=== PATIENT | female | born 1965 | race American Indian/Alaskan Native ===

== ENCOUNTER 2016-11-06 07:35 | Emergency (ER) | payer OTHER ==
[2016-11-06 07:52] VITALS: BP 132/80
[2016-11-06 08:38] LABS: Bacteria,Urine 1+ /HPF (Negative); Bilirubin,Urine NEG (Negative); Blood,Urine NEG (Negative); Ketones,Urine NEG (Negative); Leukocyte Esterase,Urine NEG (Negative); Mucus,Urine FEW /HPF; Nitrite,Urine NEG (Negative); Protein,Urine <15 mg/dL mg/dL (Negative); Urobilinogen,Urine < 2.0 mg/dL (<2.0)
--- NOTE | 2016-11-06 09:18 | XRay Report ---
Left knee 2 views: History: Left knee pain. Findings: No acute abnormality. No fracture dislocation or soft tissue calcification. Impression: No definite bony or articular abnormality knee joint.
[2016-11-06] MEDS ORDERED: TRIMOX PO ONE (11:19)
[2016-11-06] MEDS ORDERED: NORCO 5/325 PO ONE (11:19)
[2016-11-06] MEDS ORDERED: MOTRIN PO ONE (11:20)
== END 2016-11-06 11:42 | disposition home or self-care (01) ==
LOC: ED 07:35
DX: M25.562 Pain in left knee (principal); K08.89 Other specified disorders of teeth and supporting structures; F17.210 Nicotine dependence, cigarettes, uncomplicated
CPT/HCPCS: 81001; 99284

== ENCOUNTER 2017-03-29 09:21 | Inpatient (IN) | payer SELFPAY ==
[2017-03-29] MEDS ORDERED: ASPIRIN PO ONE (10:16)
[2017-03-29 10:53] LABS: Basophils % (Auto) 0.6 % (0.0-1.8); Eosinophils # (Auto) 0.1 K/mm3 (0.0-0.4); Eosinophils % (Auto) 0.7 % (0.0-4.3); Hematocrit 25.9 % (30.3-42.9); Hemoglobin 7.7 gm/dl (10.1-14.3); Lymphocytes # (Auto) 1.9 K/mm3 (1.2-5.4); Mean Corpuscular HGB Conc 30 % (30-34); Monocytes # (Auto) 0.8 K/mm3 (0.0-0.8); Monocytes % (Auto) 9.8 % (0.0-7.3); Red Blood Count 4.48 M/mm3 (3.65-5.03); Red Cell Distribution Width 19.8 % (13.2-15.2)
[2017-03-29 11:02] LABS: BUN/Creatinine Ratio 7; Blood Urea Nitrogen 4 mg/dL (7-17); Calcium 8.9 mg/dL (8.4-10.2); Hemolysis Index 0; Mean Corpuscular Hemoglobin 17 pg (28-32); Mean Corpuscular Volume 58 fl (79-97); Platelet Count 165 K/mm3 (140-440)
[2017-03-29] MEDS ORDERED: TYLENOL PO ONE (21:58)
[2017-03-29] MEDS ORDERED: TYLENOL ONE (22:00)
[2017-03-29] MEDS ORDERED: ZOFRAN IV ONE (23:37)
[2017-03-29] MEDS ORDERED: NITRO-BID 2% TP ONE (23:37)
[2017-03-29] MEDS ORDERED: MORPHINE IV ONE (23:37)
--- NOTE | 2017-03-29 23:42 | Emergency Department Report ---
HPI - General Chief Complaint: Chest Pain Time Seen by Provider: 03/29/17 23:27 - HPI HPI: Room 3 The patient is a 51-year-old female presenting with a chief complaint of chest pain. The patient states for the past 3 days she is a substernal chest pain described as a pushing pain/tightness that has been constant. Patient admits to shortness of breath and diaphoresis with her chest pain but denies nausea/ vomiting. Patient also missed to pleurisy. Patient denies any recent flights or long car trips. The patient currently gives her pain a score of 9/10. The patient states she's never had a stress test or cardiac catheterization Location: Substernal chest Duration: 3 days Quality: Tightness/Pushing Severity:9/10 Modifying factors: [see above] Context: [see above] Mode of transportation: [not driving] ED Past Medical Hx - Past Medical History Previous Medical History?: No - Surgical History Past Surgical History?: Yes Additional Surgical History: Right ankle surgery 1995 - Family History Family history: no significant - Social History Smoking Status: Current Every Day Smoker (1/5 pack per day) Substance Use Type: None (denies illicit drug use), Alcohol (occasional) - Medications Home Medications: Home Medications Medication Instructions Recorded Confirmed Last Taken Type Acetaminophen/Codeine [Tylenol #3] 1 tab PO Q6H PRN #12 tab 11/06/16 Unknown Rx Amoxicillin 500 mg PO BID #20 capsule 11/06/16 Unknown Rx Ibuprofen [Motrin] 600 mg PO Q8H PRN #15 tablet 11/06/16 Unknown Rx ED Review of Systems ROS: Stated complaint: CHEST PAIN Other details as noted in HPI Constitutional: diaphoresis Respiratory: shortness of breath Cardiovascular: chest pain Gastrointestinal: denies: nausea, vomiting Musculoskeletal: myalgia Physical Exam - Physical Exam Vital Signs: Vital Signs 03/29/17 03/29/17 03/29/17 10:08 21:56 22:00 Temperature 98.6 F 99.4 F Pulse Rate 98 H 105 H Respiratory 18 18 18 Rate Blood Pressure 146/67 165/75 O2 Sat by Pulse 100 99 Oximetry Physical Exam: GENERAL: The patient is well-developed well-nourished female sitting on stretcher not appearing to be in acute distress. [] HEENT: Normocephalic. Atraumatic. Extraocular motions are intact. Patient has moist mucous membranes. NECK: Supple. Trachea midline CHEST/LUNGS: Clear to auscultation. There is no respiratory distress noted. HEART/CARDIOVASCULAR: Regular. There is no tachycardia. There is no gallop rub or murmur. ABDOMEN: Abdomen is soft, nontender. Patient has normal bowel sounds. There is no abdominal distention. SKIN: There is no rash. There is no edema. There is no diaphoresis. NEURO: The patient is awake, alert, and oriented. The patient is cooperative. The patient has normal speech MUSCULOSKELETAL: There is no evidence of acute injury. ED Course Vital Signs 03/29/17 03/29/17 03/29/17 10:08 21:56 22:00 Temperature 98.6 F 99.4 F Pulse Rate 98 H 105 H Respiratory 18 18 18 Rate Blood Pressure 146/67 165/75 O2 Sat by Pulse 100 99 Oximetry ED Medical Decision Making - Lab Data Result diagrams: 03/29/17 10:29 03/29/17 10:29 Laboratory Tests 03/29/17 03/29/17 03/29/17 10:29 10:29 13:16 WBC 7.8 RBC 4.48 Hgb 7.7 L Hct 25.9 L MCV 58 L MCH 17 L MCHC 30 RDW 19.8 H Plt Count 165 Lymph % (Auto) 25.0 [place] % (Auto) 9.8 H Eos % (Auto) 0.7 Baso % (Auto) 0.6 Lymph # 1.9 [place] # 0.8 Eos # 0.1 Baso # 0.0 Seg Neutrophils % 63.9 Seg Neutrophils # 5.0 Sodium 141 Potassium 3.5 L Chloride 102.6 Carbon Dioxide 23 Anion Gap 19 BUN 4 L Creatinine 0.6 L Estimated GFR > 60 BUN/Creatinine Ratio 7 Glucose 98 Calcium 8.9 Troponin T < 0.010 < 0.010 03/29/17 16:00 WBC RBC Hgb Hct MCV MCH MCHC RDW Plt Count Lymph % (Auto) [place] % (Auto) Eos % (Auto) Baso % (Auto) Lymph # [place] # Eos # Baso # Seg Neutrophils % Seg Neutrophils # Sodium Potassium Chloride Carbon Dioxide Anion Gap BUN Creatinine Estimated GFR BUN/Creatinine Ratio Glucose Calcium Troponin T < 0.010 - EKG Data -: EKG Interpreted by [place] EKG shows normal: sinus rhythm Rate: normal - EKG Data When compared to previous EKG there are: no significant change Interpretation: unchanged when compared t (10/11/2015) - Radiology Data Radiology results: report reviewed (CT chest), image reviewed (chest x-ray, CT chest) interpreted by me: Chest x-ray-right lower lobe atelectasis and questionable effusion on the right lower lobe with blunting of right costophrenic angle CT chest (results discussed with radiologist) (-states patient has a right lower lobe segmental PE as well as a right lower lobe pneumonia - Differential Diagnosis ACS, GERD, pericarditis, symptomatic anemia Critical care attestation.: If time is entered above; I have spent that time in minutes in the direct care of this critically ill patient, excluding procedure time. ED Disposition Clinical Impression: Chest pain, Anemia, Pulmonary embolus, Pneumonia Disposition: OP ADMIT IP TO THIS HOSP Is pt being admited?: Yes Does the pt Need Aspirin: Yes Condition: Fair Instructions: Chest Pain (ED), Bacterial Pneumonia (ED) Referrals: BRENDA BOBO MD [Primary Care Provider] - 3-5 Days Time of Disposition: 01:16 (hospitalist page (Dr. Tawny Wylie))
[2017-03-30] MEDS ORDERED: NACL ONE (00:26)
[2017-03-30] MEDS ORDERED: LEVAQUIN PO ONE (01:14)
[2017-03-30] MEDS ORDERED: LOVENOX SUB-Q ONE (01:14)
[2017-03-30] MEDS ORDERED: DULCOLAX PR PRN (02:35)
[2017-03-30] MEDS ORDERED: ZOFRAN IV PRN (02:35)
[2017-03-30] MEDS ORDERED: MILK OF MAGNESIA PO PRN (02:35)
--- NOTE | 2017-03-30 02:44 | History and Physical Report ---
<ALLEYOCTAVIO - Last Filed: 03/30/17 11:38> History of Present Illness Date of admission: 03/30/17 02:09 Medications and Allergies Allergies Allergy/AdvReac Type Severity Reaction Status Date / Time No Known Allergies Allergy Unverified 09/04/14 06:58 Home Medications Medication Instructions Recorded Confirmed Last Taken Type Apixaban [Eliquis] 5 mg PO BID 30 Days tablet 04/01/17 Unknown Rx Apixaban [Eliquis] 10 mg PO BID 7 Days tablet 04/01/17 Unknown Rx Cyclobenzaprine [Flexeril 10 MG 5 mg PO Q8H PRN tablet 04/01/17 Unknown Rx TAB] Levofloxacin [Levaquin] 750 mg PO QDAY 7 Days tablet 04/01/17 Unknown Rx Pantoprazole [Protonix TAB] 40 mg PO QDAY tablet 04/01/17 Unknown Rx traMADol [Ultram 50 MG tab] 50 mg PO Q6HR PRN #15 tablet 04/01/17 Unknown Rx Active Meds: Active Medications Acetaminophen (Tylenol) 650 mg PO Q4H PRN PRN Reason: Pain MILD(1-3)/Fever >100.5/NAPIER Bisacodyl (Dulcolax) 10 mg IA QDAY PRN PRN Reason: Constipation unrelieved by MOM Enoxaparin Sodium (Lovenox) 100 mg SUB-Q Q12HR [facility] Last Admin: 03/30/17 09:22 Dose: 100 mg Levofloxacin/Dextrose (Levaquin 500mg/100ml) 500 mg in 100 mls @ 100 mls/hr IV Q24HR HUBERT PRN Reason: Protocol Last Admin: 03/30/17 09:23 Dose: 100 mls/hr Influenza Virus Vaccine Quadrival (Fluarix Quad [id number](36 Mos+) 0.5 ml IM .ONCE ONE Stop: 03/31/17 12:01 Magnesium Hydroxide (Milk Of Magnesia) 30 ml PO Q4H PRN PRN Reason: Constipation Ondansetron HCl (Zofran) 4 mg IV Q8H PRN PRN Reason: N/V unrelieved by Reglan Oxycodone/Acetaminophen (Percocet 5/325) 1 tab PO Q6H PRN PRN Reason: Pain, Moderate (4-6) Last Admin: 03/30/17 09:22 Dose: 1 tab Exam - Constitutional Vitals: Temp Pulse Resp BP Pulse Ox 99.4 F 89 19 117/73 98 03/29/17 21:56 03/30/17 10:48 03/30/17 10:48 03/30/17 08:18 03/30/17 10:48 Results - Labs CBC & Chem 7: 03/30/17 07:57 03/30/17 07:57 Labs: Abnormal lab results 03/30/17 03/30/17 Range/Units 07:57 07:57 Hgb 7.0 L (10.1-14.3) gm/dl Hct 23.1 L (30.3-42.9) % MCV 58 L (79-97) fl MCH 18 L (28-32) pg RDW 19.9 H (13.2-15.2) % BUN 5 L (7-17) mg/dL Creatinine 0.5 L (0.7-1.2) mg/dL Glucose 108 H (65-100) mg/dL <SARA CORDOVA - Last Filed: 04/03/17 01:38> History of Present Illness Date of examination: 03/30/17 History of present illness: 52-year-old woman with no medical problems, comes to the emergency room with chest pain that started 3 days ago. Pain is in the epigastric area which she described as a sharp, spasmy pain, radiating to the right shoulder. Also complaining of pain in the right side. Intensity 6/10, worse with coughing. Admits to shortness of breath, palpitation, no nausea vomiting, diaphoresis Review Of Systems: Constitutional: no weight loss Ears, eyes, nose, mouth and throat: no nasal congestion, no nasal discharge, no sinus pressure, blurry vision, diplopia Neck: No neck pain or rigidity. Cardiovascular: No chest pain, palpitations Respiratory:+ shortness of breath, cough Gastrointestinal: No abdominal pain, hematochezia Genitourinary : no dysuria, frequency , hematuria Musculoskeletal: no muscle ache Integumentary: no rash, no pruritis Neurological: no parathesias, focal weakness Endocrine: no cold or heat intolerance, no polyuria or polydipsia Hematologic/Lymphatic: no easy bruising, no easy bleeding, no gland swelling Allergic/Immunologic: no urticaria, no angioedema. PAST MEDICAL HISTORY:none PAST SURGICAL HISTORY:right ankle FAMILY HISTORY:hypertension SOCIAL HISTORY:smoke 5 cigarettes a day, social alcohol use, no drugs Medications and Allergies Active Meds: Active Medications Acetaminophen (Tylenol) 650 mg PO Q4H PRN PRN Reason: Pain MILD(1-3)/Fever >100.5/NAPIER Bisacodyl (Dulcolax) 10 mg IA QDAY PRN PRN Reason: Constipation unrelieved by MOM Enoxaparin Sodium (Lovenox) 100 mg SUB-Q Q12H HUBERT Magnesium Hydroxide (Milk Of Magnesia) 30 ml PO Q4H PRN PRN Reason: Constipation Ondansetron HCl (Zofran) 4 mg IV Q8H PRN PRN Reason: N/V unrelieved by Reglan Oxycodone/Acetaminophen (Percocet 5/325) 1 tab PO Q6H PRN PRN Reason: Pain, Moderate (4-6) Exam - Physical Exam Narrative exam: Gen. appearance: Patient lying in bed in no acute distress HEENT: Normocephalic/atraumatic, pupils equal round reactive to light, extra occular movement intact, no scleral icterus, no JVD or thyromegaly or nodule, neck is supple, mucous membrane moist, no erythema or exudate Heart: S1-S2, regular rate and rhythm Lungs: Clear to auscultation bilateral breathing comfortable Abdomen: Positive bowel sounds, nontender, nondistended, no organomegaly Extremities: No edema, cyanosis, clubbing Neuro:: Oriented 3 , cranial nerves II-12 intact, speech, motor intact Skin: No rash, nodules, warm dry - Constitutional Vitals: Temp Pulse Resp BP Pulse Ox 99.4 F 98 H 19 115/62 96 03/29/17 21:56 03/30/17 02:30 03/30/17 02:30 03/30/17 02:30 03/30/17 02:30 Results - Labs CBC & Chem 7: 04/01/17 Unknown 03/31/17 04:55 Labs: Abnormal lab results 03/29/17 03/29/17 Range/Units 10:29 10:29 Hgb 7.7 L (10.1-14.3) gm/dl Hct 25.9 L (30.3-42.9) % MCV 58 L (79-97) fl MCH 17 L (28-32) pg RDW 19.8 H (13.2-15.2) % [place] % (Auto) 9.8 H (0.0-7.3) % Potassium 3.5 L (3.6-5.0) mmol/L BUN 4 L (7-17) mg/dL Creatinine 0.6 L (0.7-1.2) mg/dL - Imaging and Cardiology EKG: image reviewed CT scan - chest: report reviewed Assessment and Plan Assessment Acute pulmonary emboli Community-acquired pneumonia Plan Admit to medicine Start full dose Lovenox, IV levaquin, follow cultures Obtain Doppler of the lower extremities DVT prophylaxis
[2017-03-30] MEDS: LOVENOX SUB-Q SCH ×3 (03:00→21:19)
[2017-03-30] MEDS ORDERED: K-DUR PO ONE (03:07)
[2017-03-30] MEDS: PERCOCET 5/325 PO PRN ×3 (03:39→15:13)
--- NOTE | 2017-03-30 07:46 | Progress Note ---
<OCTAVIO HAGER - Last Filed: 03/30/17 11:58> Assessment and Plan Assessment and plan: Patient is a 51-year-old woman with no medical problems, comes to the emergency room with chest pain that started 3 days ago. Pain is in the epigastric area which she described as a sharp, spasm pain, radiating to the right shoulder. Acute pulmonary emboli CTA revealed acute segmental pulmonary embolism in the right lower lobe. Continue on Lovenox subcutaneous Echocardiogram ordered to rule out right ventricle function Pulmonary consult DVT ruled out unremarkable Bilateral lower extremities Doppler. Supportive care Community-acquired pneumonia Blood cultures collected prior to antibiotic Continue on IV Levaquin Oxygen as needed Hypokalemia Resolved DVT prophylaxis On Lovenox History Interval history: Patient denies shortness of breath or chest pain. Labs and nursing notes reviewed. Hospitalist Physical - Constitutional Vitals: Temp Pulse Resp BP Pulse Ox 99.4 F 103 H 13 115/56 95 03/29/17 21:56 03/30/17 06:00 03/30/17 06:00 03/30/17 06:00 03/30/17 06:00 General appearance: Present: no acute distress - EENT Eyes: Present: PERRL ENT: hearing intact - Neck Neck: Present: supple - Respiratory Respiratory effort: normal Respiratory: bilateral: CTA - Cardiovascular Rhythm: regular Heart Sounds: Present: S1 & S2 - Abdominal General gastrointestinal: soft, non-tender - Integumentary Integumentary: Present: clear, warm, dry - Psychiatric Psychiatric: appropriate mood/affect - Neurologic Neurologic: moves all extremities - Allied Health Allied health notes reviewed: nursing Results - Labs CBC & Chem 7: 03/30/17 07:57 03/30/17 07:57 Labs: Laboratory Last Values WBC 7.8 K/mm3 (4.5-11.0) 03/29/17 10:29 RBC 4.48 M/mm3 (3.65-5.03) 03/29/17 10:29 Hgb 7.7 gm/dl (10.1-14.3) L 03/29/17 10:29 Hct 25.9 % (30.3-42.9) L 03/29/17 10:29 MCV 58 fl (79-97) L 03/29/17 10:29 MCH 17 pg (28-32) L 03/29/17 10:29 MCHC 30 % (30-34) 03/29/17 10:29 RDW 19.8 % (13.2-15.2) H 03/29/17 10:29 Plt Count 165 K/mm3 (140-440) 03/29/17 10:29 Lymph % (Auto) 25.0 % (13.4-35.0) 03/29/17 10:29 [place] % (Auto) 9.8 % (0.0-7.3) H 03/29/17 10:29 Eos % (Auto) 0.7 % (0.0-4.3) 03/29/17 10:29 Baso % (Auto) 0.6 % (0.0-1.8) 03/29/17 10:29 Lymph # 1.9 K/mm3 (1.2-5.4) 03/29/17 10:29 [place] # 0.8 K/mm3 (0.0-0.8) 03/29/17 10:29 Eos # 0.1 K/mm3 (0.0-0.4) 03/29/17 10:29 Baso # 0.0 K/mm3 (0.0-0.1) 03/29/17 10:29 Seg Neutrophils % 63.9 % (40.0-70.0) 03/29/17 10:29 Seg Neutrophils # 5.0 K/mm3 (1.8-7.7) 03/29/17 10:29 Sodium 141 mmol/L (137-145) 03/29/17 10:29 Potassium 3.5 mmol/L (3.6-5.0) L 03/29/17 10:29 Chloride 102.6 mmol/L (98-107) 03/29/17 10:29 Carbon Dioxide 23 mmol/L (22-30) 03/29/17 10:29 Anion Gap 19 mmol/L 03/29/17 10:29 BUN 4 mg/dL (7-17) L 03/29/17 10:29 Creatinine 0.6 mg/dL (0.7-1.2) L 03/29/17 10:29 Estimated GFR > 60 ml/min 03/29/17 10:29 BUN/Creatinine Ratio 7 % 03/29/17 10:29 Glucose 98 mg/dL (65-100) 03/29/17 10:29 Calcium 8.9 mg/dL (8.4-10.2) 03/29/17 10:29 Troponin T < 0.010 ng/mL (0.00-0.029) 03/29/17 16:00 <BRENDA HYATT - Last Filed: 03/30/17 17:23> Assessment and Plan Assessment and plan: I saw and evaluated the patient. I agree with the findings and the plan of care as documented in the Nurse Practitioner's~note, with the following corrections and additions. Patient with acute pulmonary embolism, pneumonia. Continue Lovenox and [facility] Hospitalist Physical - Constitutional Vitals: Temp Pulse Resp BP Pulse Ox 98.3 F 94 H 20 127/76 98 03/30/17 12:29 03/30/17 12:29 03/30/17 15:13 03/30/17 12:29 03/30/17 12:29 Results - Labs CBC & Chem 7: 03/30/17 07:57 03/30/17 07:57 Labs: Laboratory Last Values WBC 7.2 K/mm3 (4.5-11.0) 03/30/17 07:57 RBC 3.98 M/mm3 (3.65-5.03) 03/30/17 07:57 Hgb 7.0 gm/dl (10.1-14.3) L 03/30/17 07:57 Hct 23.1 % (30.3-42.9) L 03/30/17 07:57 MCV 58 fl (79-97) L 03/30/17 07:57 MCH 18 pg (28-32) L 03/30/17 07:57 MCHC 30 % (30-34) 03/30/17 07:57 RDW 19.9 % (13.2-15.2) H 03/30/17 07:57 Plt Count 185 K/mm3 (140-440) 03/30/17 07:57 Lymph % (Auto) 25.0 % (13.4-35.0) 03/29/17 10:29 [place] % (Auto) 9.8 % (0.0-7.3) H 03/29/17 10:29 Eos % (Auto) 0.7 % (0.0-4.3) 03/29/17 10:29 Baso % (Auto) 0.6 % (0.0-1.8) 03/29/17 10:29 Lymph # 1.9 K/mm3 (1.2-5.4) 03/29/17 10:29 [place] # 0.8 K/mm3 (0.0-0.8) 03/29/17 10:29 Eos # 0.1 K/mm3 (0.0-0.4) 03/29/17 10:29 Baso # 0.0 K/mm3 (0.0-0.1) 03/29/17 10:29 Seg Neutrophils % 63.9 % (40.0-70.0) 03/29/17 10:29 Seg Neutrophils # 5.0 K/mm3 (1.8-7.7) 03/29/17 10:29 Sodium 138 mmol/L (137-145) 03/30/17 07:57 Potassium 3.8 mmol/L (3.6-5.0) 03/30/17 07:57 Chloride 100.6 mmol/L (98-107) 03/30/17 07:57 Carbon Dioxide 23 mmol/L (22-30) 03/30/17 07:57 Anion Gap 18 mmol/L 03/30/17 07:57 BUN 5 mg/dL (7-17) L 03/30/17 07:57 Creatinine 0.5 mg/dL (0.7-1.2) L 03/30/17 07:57 Estimated GFR > 60 ml/min 03/30/17 07:57 BUN/Creatinine Ratio 10 % 03/30/17 07:57 Glucose 108 mg/dL (65-100) H 03/30/17 07:57 POC Glucose 108 (70-105) H 03/30/17 08:22 Calcium 8.6 mg/dL (8.4-10.2) 03/30/17 07:57 Troponin T < 0.010 ng/mL (0.00-0.029) 03/29/17 16:00
[2017-03-30 08:33] LABS: BUN/Creatinine Ratio 10; Blood Urea Nitrogen 5 mg/dL (7-17); Calcium 8.6 mg/dL (8.4-10.2); Hematocrit 23.1 % (30.3-42.9); Hemolysis Index 0; Mean Corpuscular HGB Conc 30 % (30-34); Platelet Count 185 K/mm3 (140-440); Red Blood Count 3.98 M/mm3 (3.65-5.03); Red Cell Distribution Width 19.9 % (13.2-15.2)
[2017-03-30 08:34] LABS: Mean Corpuscular Hemoglobin 18 pg (28-32); Mean Corpuscular Volume 58 fl (79-97)
[2017-03-30] MEDS: LEVAQUIN 500MG/100ML 500 MG/100 ML BAG IV SCH (09:23)
--- NOTE | 2017-03-30 09:42 | XRay Report ---
FINAL REPORT EXAM: XR CHEST ROUTINE 2V HISTORY: sob/chest pain TECHNIQUE: Chest, PA and lateral PRIORS: None. FINDINGS: There is some atelectasis versus infiltrate at the right lung base. There is a small right pleural effusion suspected. There is minimal left basilar atelectasis. There is no cardiomegaly or vascular congestion. There is no pneumothorax. IMPRESSION: There is right lower lobe atelectasis versus infiltrate and small right pleural effusion.
--- NOTE | 2017-03-30 09:48 | Cat Scan Report ---
FINAL REPORT EXAM: CT ANGIO CHEST HISTORY: chest pain, pleurisy, shortness of breath TECHNIQUE: CT angiography of the chest was performed. 100 cc Omnipaque 350 IV was administered. Coronal and sagittal reformatted images were and rotational MIP reformatted images were obtained.. PRIORS: None. FINDINGS: There is no aortic dissection seen. There are filling defects within right lower lobe segmental pulmonary arteries. This is consistent with pulmonary embolism. There is no embolism seen on the left side. There is airspace disease in the right lower lobe and small right pleural effusion. There is some subsegmental atelectasis in the left lower lobe. There is no pneumothorax seen. There is no significant mediastinal or hilar mass seen. IMPRESSION: Acute segmental pulmonary emboli in the right lower lobe. Right lower lobe airspace disease could be pneumonia or reflect pulmonary infarct. There is a small right pleural effusion.
[2017-03-30] MEDS: PROTONIX PO SCH (16:54)
[2017-03-30 18:32] LABS: Iron 13 ug/dL (37-170); Total Iron Binding Capacity 342 mcg/dL (250-450)
[2017-03-30] MEDS: FLEXERIL PO PRN (21:20)
[2017-03-30] MEDS: TYLENOL PO PRN (21:23)
[2017-03-31] MEDS: PERCOCET 5/325 PO PRN ×3 (01:51→16:30)
[2017-03-31] MEDS: FLEXERIL PO PRN ×3 (05:41→16:10)
[2017-03-31 05:42] LABS: Basophils % (Auto) 0.6 % (0.0-1.8); Eosinophils # (Auto) 0.1 K/mm3 (0.0-0.4); Eosinophils % (Auto) 1.4 % (0.0-4.3); Hematocrit 23.3 % (30.3-42.9); Lymphocytes # (Auto) 1.9 K/mm3 (1.2-5.4); Lymphocytes % (Auto) 27.9 % (13.4-35.0); Mean Corpuscular HGB Conc 30 % (30-34); Monocytes # (Auto) 0.6 K/mm3 (0.0-0.8); Monocytes % (Auto) 9.6 % (0.0-7.3); Platelet Count 185 K/mm3 (140-440); Red Blood Count 4.04 M/mm3 (3.65-5.03); Red Cell Distribution Width 19.8 % (13.2-15.2)
[2017-03-31 05:52] LABS: BUN/Creatinine Ratio 8; Blood Urea Nitrogen 5 mg/dL (7-17); Calcium 8.7 mg/dL (8.4-10.2); Hemolysis Index 18
[2017-03-31 05:57] LABS: Mean Corpuscular Hemoglobin 17 pg (28-32); Mean Corpuscular Volume 58 fl (79-97)
[2017-03-31] MEDS: TYLENOL PO PRN ×2 (07:40→20:33)
--- NOTE | 2017-03-31 08:44 | Vascular Lab Report ---
LOWER EXTREMITY VENOUS DUPLEX: REASON FOR EXAM: DVT. COMMENTS ON THE RIGHT: All veins visualized are freely compressible without evidence of internal echogenicity. Flow is spontaneous and phasic throughout. COMMENTS ON THE LEFT: All veins visualized are freely compressible without evidence of internal echogenicity. Flow is spontaneous and phasic throughout. IMPRESSION: No evidence of acute or chronic deep venous thrombosis in either lower extremity.
--- NOTE | 2017-03-31 09:14 | Progress Note ---
Assessment and Plan Assessment and plan: Patient is a 51-year-old woman with no medical problems, comes to the emergency room with chest pain that started 3 days ago. Pain is in the epigastric area which she described as a sharp, spasm pain, radiating to the right shoulder. Acute pulmonary emboli CTA revealed acute segmental pulmonary embolism in the right lower lobe. Continue on Lovenox subcutaneous Echocardiogram ordered to rule out right ventricle function Pulmonary consult DVT ruled out unremarkable Bilateral lower extremities Doppler. Supportive care Awaiting on Pulmonary input Community-acquired pneumonia Blood cultures collected prior to antibiotic Continue on IV Levaquin Oxygen as needed Blood loss Anemia Secondary to heavy menstrual period Patient H&H low 7.0/23.3 Patient received i unit of PRBC Closely monitor H&H Hypokalemia Resolved DVT prophylaxis On Lovenox History Interval history: Patient complains shortness of breath. Labs and nursing notes reviewed. Hospitalist Physical - Constitutional Vitals: Temp Pulse Resp BP Pulse Ox 98.9 F 90 20 130/85 95 03/31/17 08:06 03/31/17 08:05 03/31/17 08:06 03/31/17 08:06 03/31/17 08:05 General appearance: Present: no acute distress - EENT Eyes: Present: PERRL - Neck Neck: Present: supple - Respiratory Respiratory effort: normal Respiratory: bilateral: diminished - Cardiovascular Rhythm: regular Heart Sounds: Present: S1 & S2 - Abdominal General gastrointestinal: soft, non-tender - Integumentary Integumentary: Present: clear, warm, dry - Psychiatric Psychiatric: appropriate mood/affect - Neurologic Neurologic: moves all extremities - Allied Health Allied health notes reviewed: nursing Results - Labs CBC & Chem 7: 04/01/17 Unknown 03/31/17 04:55 Labs: Laboratory Last Values WBC 6.7 K/mm3 (4.5-11.0) 03/31/17 04:55 RBC 4.04 M/mm3 (3.65-5.03) 03/31/17 04:55 Hgb 7.0 gm/dl (10.1-14.3) L 03/31/17 04:55 Hct 23.3 % (30.3-42.9) L 03/31/17 04:55 MCV 58 fl (79-97) L 03/31/17 04:55 MCH 17 pg (28-32) L 03/31/17 04:55 MCHC 30 % (30-34) 03/31/17 04:55 RDW 19.8 % (13.2-15.2) H 03/31/17 04:55 Plt Count 185 K/mm3 (140-440) 03/31/17 04:55 Lymph % (Auto) 27.9 % (13.4-35.0) 03/31/17 04:55 [place] % (Auto) 9.6 % (0.0-7.3) H 03/31/17 04:55 Eos % (Auto) 1.4 % (0.0-4.3) 03/31/17 04:55 Baso % (Auto) 0.6 % (0.0-1.8) 03/31/17 04:55 Lymph # 1.9 K/mm3 (1.2-5.4) 03/31/17 04:55 [place] # 0.6 K/mm3 (0.0-0.8) 03/31/17 04:55 Eos # 0.1 K/mm3 (0.0-0.4) 03/31/17 04:55 Baso # 0.0 K/mm3 (0.0-0.1) 03/31/17 04:55 Seg Neutrophils % 60.5 % (40.0-70.0) 03/31/17 04:55 Seg Neutrophils # 4.1 K/mm3 (1.8-7.7) 03/31/17 04:55 Sodium 138 mmol/L (137-145) 03/31/17 04:55 Potassium 4.0 mmol/L (3.6-5.0) 03/31/17 04:55 Chloride 100.7 mmol/L (98-107) 03/31/17 04:55 Carbon Dioxide 23 mmol/L (22-30) 03/31/17 04:55 Anion Gap 18 mmol/L 03/31/17 04:55 BUN 5 mg/dL (7-17) L 03/31/17 04:55 Creatinine 0.6 mg/dL (0.7-1.2) L 03/31/17 04:55 Estimated GFR > 60 ml/min 03/31/17 04:55 BUN/Creatinine Ratio 8 % 03/31/17 04:55 Glucose 99 mg/dL (65-100) 03/31/17 04:55 POC Glucose 108 (70-105) H 03/30/17 08:22 Calcium 8.7 mg/dL (8.4-10.2) 03/31/17 04:55 Iron 13 ug/dL (37-170) L 03/30/17 17:35 TIBC 342 mcg/dL (250-450) 03/30/17 17:35 Ferritin 12.2 ng/mL (13.0-400.0) L 03/30/17 17:35 Troponin T < 0.010 ng/mL (0.00-0.029) 03/29/17 16:00 Blood Type B POSITIVE 03/30/17 17:40 Antibody Screen Negative 03/30/17 17:40 Crossmatch See Detail 03/30/17 17:40
[2017-03-31] MEDS ORDERED: NACL 0.9% 500 ML 500 ML IV NR (09:30)
[2017-03-31] MEDS: PROTONIX PO SCH (10:23)
[2017-03-31] MEDS: LOVENOX SUB-Q SCH ×2 (10:23→22:52)
[2017-03-31] MEDS ORDERED: Fluarix Quad 2017-2018(36 MOS+ IM ONE (12:00)
--- NOTE | 2017-03-31 16:07 | Consultation ---
History of Present Illness Consult date: 03/31/17 Requesting physician: BRENDA HYATT Reason for consult: pulmonary embolism History of present illness: 52 y/o female found to have PE and mild pulmonary hypertension. Currently patient on room air, stable with no difficulty in breathing. Has never had clot before, nor has anyone in her family had clot. No miscarriages. No recent long trips. Medications and Allergies Allergies Allergy/AdvReac Type Severity Reaction Status Date / Time No Known Allergies Allergy Unverified 09/04/14 06:58 Home Medications Medication Instructions Recorded Confirmed Last Taken Type No Known Home Medications [No 03/30/17 03/30/17 Unknown History Reported Home Medications] Active Meds: Active Medications Acetaminophen (Tylenol) 650 mg PO Q4H PRN PRN Reason: Pain MILD(1-3)/Fever >100.5/NAPIER Last Admin: 03/31/17 07:40 Dose: 650 mg Bisacodyl (Dulcolax) 10 mg IA QDAY PRN PRN Reason: Constipation unrelieved by MOM Cyclobenzaprine HCl (Flexeril) 5 mg PO Q8H PRN PRN Reason: Muscle Spasm Last Admin: 03/31/17 05:41 Dose: 5 mg Enoxaparin Sodium (Lovenox) 100 mg SUB-Q Q12HR [facility] Last Admin: 03/31/17 10:23 Dose: 100 mg Levofloxacin/Dextrose (Levaquin 500mg/100ml) 500 mg in 100 mls @ 100 mls/hr IV Q24HR [facility]UBERT PRN Reason: Protocol Last Admin: 03/30/17 09:23 Dose: 100 mls/hr Magnesium Hydroxide (Milk Of Magnesia) 30 ml PO Q4H PRN PRN Reason: Constipation Ondansetron HCl (Zofran) 4 mg IV Q8H PRN PRN Reason: N/V unrelieved by Reglan Oxycodone/Acetaminophen (Percocet 5/325) 1 tab PO Q6H PRN PRN Reason: Pain, Moderate (4-6) Last Admin: 03/31/17 10:23 Dose: 1 tab Pantoprazole Sodium (Protonix) 40 mg PO QDAY [facility] Last Admin: 03/31/17 10:23 Dose: 40 mg Physical Examination Vital signs: Vital Signs Temp Pulse Resp BP Pulse Ox 98.6 F 98 H 18 146/67 100 03/29/17 10:08 03/29/17 10:08 03/29/17 10:08 03/29/17 10:08 03/29/17 10:08 Results - Laboratory Findings CBC and BMP: 03/31/17 04:55 03/31/17 04:55 Abnormal lab findings: Abnormal Labs 03/29/17 03/29/17 03/30/17 10:29 10:29 07:57 Hgb 7.7 L 7.0 L Hct 25.9 L 23.1 L MCV 58 L 58 L MCH 17 L 18 L RDW 19.8 H 19.9 H Brown % (Auto) 9.8 H Potassium 3.5 L BUN 4 L Creatinine 0.6 L Glucose POC Glucose Iron Ferritin Crossmatch 03/30/17 03/30/17 03/30/17 07:57 08:22 17:35 Hgb Hct MCV MCH RDW Brown % (Auto) Potassium BUN 5 L Creatinine 0.5 L Glucose 108 H POC Glucose 108 H Iron 13 L Ferritin Crossmatch 03/30/17 03/30/17 03/31/17 17:35 17:40 04:55 Hgb 7.0 L Hct 23.3 L MCV 58 L MCH 17 L RDW 19.8 H Brown % (Auto) 9.6 H Potassium BUN Creatinine Glucose POC Glucose Iron Ferritin 12.2 L Crossmatch See Detail 03/31/17 04:55 Hgb Hct MCV MCH RDW Brown % (Auto) Potassium BUN 5 L Creatinine 0.6 L Glucose POC Glucose Iron Ferritin Crossmatch Assessment and Plan 52 y/o female with acute pulmonary emboli and current smoker 1. Agree with current dose of lovenox therapy. 2. Needs heme consult for hypercoag work up 3. Smoking cessation and counseling 4. Will sign off, call if questions.
[2017-03-31] MEDS: LEVAQUIN 500MG/100ML 500 MG/100 ML BAG IV SCH (17:35)
[2017-03-31] MEDS ORDERED: MIRALAX 3350 PO PRN (22:18)
[2017-04-01] MEDS: PERCOCET 5/325 PO PRN ×2 (00:56→08:44)
[2017-04-01] MEDS: FLEXERIL PO PRN ×2 (00:57→08:45)
[2017-04-01] MEDS: TYLENOL PO PRN (04:47)
[2017-04-01 07:05] LABS: Hematocrit 26.2 % (30.3-42.9); Mean Corpuscular HGB Conc 30 % (30-34); Platelet Count 210 K/mm3 (140-440); Red Blood Count 4.33 M/mm3 (3.65-5.03)
[2017-04-01 07:09] LABS: Mean Corpuscular Hemoglobin 18 pg (28-32); Mean Corpuscular Volume 61 fl (79-97); Red Cell Distribution Width 21.3 % (13.2-15.2)
[2017-04-01] MEDS: LOVENOX SUB-Q SCH (10:35)
[2017-04-01] MEDS: LEVAQUIN 500MG/100ML 500 MG/100 ML BAG IV SCH (10:35)
[2017-04-01] MEDS: PROTONIX PO SCH (10:35)
[2017-04-01 10:50] LABS: Hematocrit 27.7 % (30.3-42.9); Hemoglobin 8.4 gm/dl (10.1-14.3)
[2017-04-01 10:54] LABS: Basophils % (Auto) 0.6 % (0.0-1.8); Eosinophils # (Auto) 0.1 K/mm3 (0.0-0.4); Eosinophils % (Auto) 2.1 % (0.0-4.3); Hematocrit 27.8 % (30.3-42.9); Hemoglobin 8.4 gm/dl (10.1-14.3); Lymphocytes # (Auto) 1.2 K/mm3 (1.2-5.4); Lymphocytes % (Auto) 21.8 % (13.4-35.0); Mean Corpuscular HGB Conc 30 % (30-34); Mean Corpuscular Volume 60 fl (79-97); Monocytes # (Auto) 0.4 K/mm3 (0.0-0.8); Monocytes % (Auto) 8.1 % (0.0-7.3); Platelet Count 224 K/mm3 (140-440); Red Blood Count 4.64 M/mm3 (3.65-5.03)
[2017-04-01 10:55] LABS: Mean Corpuscular Hemoglobin 18 pg (28-32); Red Cell Distribution Width 21.2 % (13.2-15.2)
--- NOTE | 2017-04-01 11:57 | Discharge Summary ---
<OCTAVIO HAGER - Last Filed: 04/01/17 15:18> Providers - Providers Date of Admission: 03/30/17 02:09 Date of discharge: 04/01/17 Attending physician: BRENDA HYATT 04/01/17 07:57 Consult to Case Management [CONS] Routine Services Needed at Discharge: Practical Nurse Clinical Coordinator Notified:: Case management Comment:: Anticoagulation medication assistance 04/01/17 09:22 Consult to Physician [CONS] Routine Consulting Provider: STEVE GOINS Reason For Exam: PE Place consult to:: Dr. Goins Notified:: Gretta Phone number called:: Was contact made?: Yes If yes, spoke with:: Michelle-office Time called:: 09:26 Primary care physician: BRENDA BOBO Hospitalization Reason for admission: PE Condition: Fair Hospital course: Patient is a 51-year-old woman with no medical problems, comes to the emergency room with chest pain that started 3 days ago. Pain is in the epigastric area which she described as a sharp, spasm pain, radiating to the right shoulder. Patient was diagnosis acute pulmonary embolism, community-acquired pneumonia, blood loss anemia and hypokalemia. CTA revealed acute segmental pulmonary embolism in the right lower lobe. Patient treated with blood thinner. Patient presented with atypical chest pain, ACS was ruled out, stress test normal MPI, echocardiogram EF 60%-65% with normal LV. negative cardiac enzymes, ECGs shows normal sinus rythm. CXR reveled pneumonia and treated with IV antibiotic. Patient chest pain due to PE. She was treated with supplemental oxygen, aggressive nebulizer therapy and supplemental potassium. Blood loos anemia secondary to menstrual period. Patient transfused 2 units of PRBC and tolerated well. Patient was advised to follow up with [facility] as outpatient.She is being discharged on Eliquis along with oral antibiotic. Patient clinically improved and stable for discharge. Patient was advised to follow up within a week of discharge with Dr. Goins vp research and her primary care provider. Discharge diagnosed Acute pulmonary emboli Community-acquired pneumonia Blood loss Anemia Hypokalemia Disposition: TO HOME OR SELFCARE Time spent for discharge: 33 minutes Core Measure Documentation - Palliative Care Palliative Care/ Comfort Measures: Not Applicable - Core Measures Any of the following diagnoses?: none Exam - Constitutional Vitals: Temp Pulse Resp BP Pulse Ox 98.6 F 84 20 118/59 97 04/01/17 09:50 04/01/17 09:50 04/01/17 09:50 04/01/17 09:50 04/01/17 09:50 General appearance: Present: no acute distress - EENT Eyes: Present: PERRL ENT: hearing intact - Neck Neck: Present: supple - Respiratory Respiratory effort: normal Respiratory: bilateral: CTA - Cardiovascular Rhythm: regular Heart Sounds: Present: S1 & S2 - Abdominal General gastrointestinal: Present: soft, non-tender Female genitourinary: Present: deferred - Rectal Rectal Exam: deferred - Integumentary Integumentary: Present: clear, warm, dry - Musculoskeletal Musculoskeletal: strength equal bilaterally - Psychiatric Psychiatric: appropriate mood/affect - Neurologic Neurologic: moves all extremities - Allied Health Allied health notes reviewed: nursing Plan Diet: low fat, low cholesterol, low salt Additional Instructions: Follow-up with hematology and [facility] Follow up with: STEVE GOINS MD [Staff Physician] - 7 Days BRENDA BOBO MD [Primary Care Provider] - 3-5 Days JANEE LUIS MD [Referring] - 7 Days Prescriptions: Apixaban [Eliquis] 10 mg PO BID 7 Days tablet Apixaban [Eliquis] 5 mg PO BID 30 Days tablet Levofloxacin [Levaquin] 750 mg PO QDAY 7 Days tablet traMADol [Ultram 50 MG tab] 50 mg PO Q6HR PRN #15 tablet PRN Reason: Pain <BRENDA HYATT - Last Filed: 04/01/17 18:00> Providers - Providers Date of Admission: 03/30/17 02:09 Attending physician: BRENDA HYATT 04/01/17 07:57 Consult to Case Management [CONS] Routine Services Needed at Discharge: Practical Nurse Clinical Coordinator Notified:: Case management Comment:: Anticoagulation medication assistance 04/01/17 09:22 Consult to Physician [CONS] Routine Consulting Provider: STEVE GOINS Reason For Exam: PE Place consult to:: Dr. Goins Notified:: Gretta Phone number called:: Was contact made?: Yes If yes, spoke with:: Michelle-office Time called:: 09:26 Primary care physician: BRENDA BOBO Exam - Constitutional Vitals: Temp Pulse Resp BP Pulse Ox 100.2 F H 20 L 20 130/70 98 04/01/17 17:24 04/01/17 17:24 04/01/17 17:24 04/01/17 17:24 04/01/17 17:24
[2017-04-01 17:25] VITALS: BP 130/70
--- NOTE | 2017-04-02 03:29 | Consultation ---
REFERRING PHYSICIAN: Dr. Fausto Garcia. REASON FOR CONSULTATION: Pulmonary embolus. HISTORY OF PRESENT ILLNESS: The patient is a 52-year-old female with a history of tobacco abuse. She presented to the hospital with shortness of breath. She was found to have sharp pain in the right shoulder, which was worse on coughing. She ended up getting a CT of the chest in the Emergency Room, where she was found to have evidence of acute segmental pulmonary embolus on the right lower lobe. She is being treated with anticoagulants. Hematology consult was called for workup for hypercoagulable state. The patient denies any previous history of any DVT. Denies any history of malignancy. She does smoke cigarettes, which she says stopped now. Does not take any hormones. She had not had prolonged immobilization. The patient also has heavy periods the last one lasted 2 weeks and was heavy. She has not seen [facility] in some time. PAST MEDICAL HISTORY: Otherwise, unremarkable. SOCIAL HISTORY: Positive for tobacco abuse. PHYSICAL EXAMINATION: GENERAL: The patient is awake and oriented. HEENT: Reveals decreased breath sounds on the left. CARDIOVASCULAR: Regular rate and rhythm. ABDOMEN: Soft. EXTREMITIES: No clubbing, cyanosis, or edema. LABORATORY DATA: Lab work yesterday showed a hemoglobin of 7, white count 6.7, and platelets 185,000. Anemia workup shows a ferritin of 12.2. ASSESSMENT: 1. PE in this patient with tobacco abuse. 2. Microcytic anemia from iron deficiency. PLAN: At this time, the patient received 1 unit of packed RBCs and I am awaiting the results of her CBC. If all goes well, she can go home and follow up in my office. The patient will be started on Eliquis or Xarelto. I will do a hypercoagulable workup. I will see her in my office next week for followup. We discussed with Dr. Garcia and nurse practitioner. JOB# [id number] JOY/TRINIDAD
[2017-04-03 13:45] LABS: Protein S, Free 73 % normal (50-147); Protein S, Total 119 % (70-140)
[2017-04-03 21:49] LABS: dRVVT Confirm Negative (Negative)
== END 2017-04-01 19:46 | disposition home or self-care (01) | DRG 175 ==
LOC: ED 09:21 → 4A 03-30 02:09
PROVIDERS: ADMIT Internal Medicine; ATTEND Internal Medicine
PROC: 3E0234Z Introduction of Serum, Toxoid and Vaccine into Muscle, Percutaneous Approach (ICD-10-PCS; principal; 2017-03-31)
PROC: 30233N1 Transfusion of Nonautologous Red Blood Cells into Peripheral Vein, Percutaneous Approach (ICD-10-PCS; 2017-03-31)
DX: I26.99 Other pulmonary embolism without acute cor pulmonale (principal); J18.9 Pneumonia, unspecified organism; Z23 Encounter for immunization; Z82.49 Family history of ischemic heart disease and other diseases of the circulatory system; F17.210 Nicotine dependence, cigarettes, uncomplicated; E87.6 Hypokalemia; I27.20 Pulmonary hypertension, unspecified; D50.0 Iron deficiency anemia secondary to blood loss (chronic)
CPT/HCPCS: 36415; 36430; 71046; 71275; 80048; 82728; 82962; 83550; 84484; 85014; 85018; 85025; 85027; 85210; 85220; 85301; 85305; 85613; 86850; 86900; 86901; 86920; 87040; 90686; 93005; 93010; 93306; 93970; 94760; 96372; 96374; 96375; 99406; J1650; J1956; J2270; J2405; J7040; P9016; Q9967

== ENCOUNTER 2018-01-19 08:48 | Emergency (ER) | payer SELFPAY ==
--- NOTE | 2018-01-19 09:50 | Emergency Department Report ---
ED Upper Extremity Inj HPI - General Chief Complaint: Extremity Problem,Nontraumatic Stated Complaint: NUMBNESS/ BOTH HANDS/ARMS BURNING Time Seen by Provider: 01/19/18 09:04 Source: patient Mode of arrival: Ambulatory Limitations: No Limitations - History of Present Illness Initial Comments: 52-year-old Syrian female who works with her hands excessively twisting, turning this emergency department complaining of a several day history of progressively worsening wrist pain that Shoots to her fingertips and sometimes up her forearm. Pain gets worse with palpation of the wrist and with certain movements. 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 No fever, chills, sweats, chest pain, shortness of breath, SWELLING, temperature changes to the extremity MD Complaint: Injury to:: right, wrist -: Sudden, days(s) (several) Handedness: right Place: home, work Improves With: cold therapy Worsens With: movement of extremity Associated Symptoms: weakness, numbness. denies: suspects foreign body, nausea/ vomiting, heard/felt popping sensat Treatments Prior to Arrival: cold therapy - Related Data Previous Rx's Medication Instructions Recorded Last Taken Type Apixaban [Eliquis] 5 mg PO BID 30 Days tablet 04/01/17 Unknown Rx Apixaban [Eliquis] 10 mg PO BID 7 Days tablet 04/01/17 Unknown Rx Cyclobenzaprine [Flexeril 10 MG 5 mg PO Q8H PRN tablet 04/01/17 Unknown Rx TAB] Pantoprazole [Protonix TAB] 40 mg PO QDAY tablet 04/01/17 Unknown Rx levoFLOXacin [Levaquin] 750 mg PO QDAY 7 Days tablet 04/01/17 Unknown Rx traMADol [Ultram 50 MG tab] 50 mg PO Q6HR PRN #15 tablet 04/01/17 Unknown Rx methOCARBAMOL [Robaxin TAB] 500 mg PO Q6H #20 tablet 01/19/18 Unknown Rx predniSONE [Deltasone] 20 mg PO QDAY #7 tab 01/19/18 Unknown Rx Allergies Allergy/AdvReac Type Severity Reaction Status Date / Time No Known Allergies Allergy Unverified 09/04/14 06:58 ED Review of Systems ROS: Stated complaint: NUMBNESS/ BOTH HANDS/ARMS BURNING Other details as noted in HPI Constitutional: denies: chills, fever Eyes: denies: eye pain, eye discharge, vision change ENT: denies: ear pain, throat pain Respiratory: denies: cough, shortness of breath, wheezing Cardiovascular: denies: chest pain, palpitations Endocrine: no symptoms reported Gastrointestinal: denies: abdominal pain, nausea, diarrhea Genitourinary: denies: urgency, dysuria, discharge Musculoskeletal: arthralgia. denies: back pain, joint swelling Skin: denies: rash, lesions Neurological: denies: headache, weakness, paresthesias Psychiatric: denies: anxiety, depression Hematological/Lymphatic: denies: easy bleeding, easy bruising ED Past Medical Hx - Past Medical History Hx Congestive Heart Failure: No Hx Diabetes: No Hx Asthma: No Hx COPD: No Additional medical history: PE, hypokalemia - Surgical History Additional Surgical History: Right ankle surgery 1995 - Social History Smoking Status: Current Every Day Smoker Substance Use Type: None - Medications Home Medications: Home Medications Medication Instructions Recorded Confirmed Last Taken Type Apixaban [Eliquis] 5 mg PO BID 30 Days tablet 04/01/17 Unknown Rx Apixaban [Eliquis] 10 mg PO BID 7 Days tablet 04/01/17 Unknown Rx Cyclobenzaprine [Flexeril 10 MG 5 mg PO Q8H PRN tablet 04/01/17 Unknown Rx TAB] Pantoprazole [Protonix TAB] 40 mg PO QDAY tablet 04/01/17 Unknown Rx levoFLOXacin [Levaquin] 750 mg PO QDAY 7 Days tablet 04/01/17 Unknown Rx traMADol [Ultram 50 MG tab] 50 mg PO Q6HR PRN #15 tablet 04/01/17 Unknown Rx methOCARBAMOL [Robaxin TAB] 500 mg PO Q6H #20 tablet 01/19/18 Unknown Rx predniSONE [Deltasone] 20 mg PO QDAY #7 tab 01/19/18 Unknown Rx ED Physical Exam - General Limitations: No Limitations General appearance: alert, in no apparent distress - Head Head exam: Present: atraumatic, normocephalic - Eye Eye exam: Present: normal appearance - ENT ENT exam: Present: mucous membranes moist - Neck Neck exam: Present: normal inspection - Respiratory Respiratory exam: Present: normal lung sounds bilaterally. Absent: respiratory distress - Cardiovascular Cardiovascular Exam: Present: regular rate, normal rhythm. Absent: systolic murmur, diastolic murmur, rubs, gallop - GI/Abdominal GI/Abdominal exam: Present: soft, normal bowel sounds - Extremities Exam Extremities exam: Present: normal inspection - Expanded Upper Extremity Exam Right Shoulder Exam: Present: normal inspection, full ROM, other (toe pain with Lopez does no pain with O'Adebayo's test. No pain with nears test). Absent: tenderness, swelling, abrasion Upper Arm exam: Present: normal inspection, full ROM Forearm Wrist exam: Present: full ROM, tenderness (there is tenderness to the anterior aspect of the wrist along the area of the carpal band. Pulses are 2+. There appears to have positive Tinel sign and Phalens test. Negative fovea sign. Negative Sophia maneuver). Absent: crepidus, dislocation Hand Wrist exam: Absent: laceration, ecchymosis, deformity, nail avulsion - Back Exam Back exam: Present: normal inspection - Neurological Exam Neurological exam: Present: alert, oriented X3 - Psychiatric Psychiatric exam: Present: normal affect, normal mood - Skin Skin exam: Present: warm, dry, intact, normal color. Absent: rash ED Course Vital Signs 01/19/18 01/19/18 01/19/18 08:50 10:09 10:10 Temperature 97.8 F 98.2 F Pulse Rate 82 70 Respiratory 18 19 13 Rate Blood Pressure 179/83 Blood Pressure 152/98 [Left] O2 Sat by Pulse 99 99 98 Oximetry Critical care attestation.: If time is entered above; I have spent that time in minutes in the direct care of this critically ill patient, excluding procedure time. ED Disposition Clinical Impression: Wrist pain, right Disposition: DC-01 TO HOME OR SELFCARE Is pt being admited?: No Does the pt Need Aspirin: No Condition: Stable Instructions: Carpal Tunnel Syndrome (ED) Prescriptions: methOCARBAMOL [Robaxin TAB] 500 mg PO Q6H #20 tablet predniSONE [Deltasone] 20 mg PO QDAY #7 tab Referrals: PRIMARY CARE, [Primary Care Provider] - 3-5 Days
[2018-01-19 10:12] VITALS: BP 152/98
== END 2018-01-19 10:10 | disposition home or self-care (01) ==
LOC: ED 08:48
DX: M25.561 Pain in right knee (principal); Z86.711 Personal history of pulmonary embolism; F17.200 Nicotine dependence, unspecified, uncomplicated

== ENCOUNTER 2018-07-22 07:03 | Emergency (ER) | payer OTHER ==
[2018-07-22 07:09] VITALS: BP 162/81
[2018-07-22] MEDS ORDERED: TORADOL IM ONE (08:30)
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
== END 2018-07-22 10:51 | disposition home or self-care (01) ==
LOC: ED 07:03
DX: S20.219A Contusion of unspecified front wall of thorax, initial encounter (principal); S20.229A Contusion of unspecified back wall of thorax, initial encounter; S10.93XA Contusion of unspecified part of neck, initial encounter; F17.200 Nicotine dependence, unspecified, uncomplicated; Z79.899 Other long term (current) drug therapy; Z86.711 Personal history of pulmonary embolism; V49.9XXA Car occupant (driver) (passenger) injured in unspecified traffic accident, initial encounter; Y93.89 Activity, other specified; Y92.488 Other paved roadways as the place of occurrence of the external cause; Y99.8 Other external cause status
CPT/HCPCS: 71046; 72040; 72100; 96372; 99283; J1885

== ENCOUNTER 2020-02-19 09:46 | Emergency (ER) | payer OTHER ==
--- NOTE | 2020-02-19 10:35 | XRay Report ---
XR chest 1V ap INDICATION / CLINICAL INFORMATION: Chest Pain. COMPARISON: None available. FINDINGS: SUPPORT DEVICES: None. HEART /PULMONARY VASCULATURE: No significant abnormality. LUNGS / PLEURA: No significant pulmonary or pleural abnormality. No pneumothorax. ADDITIONAL FINDINGS: No significant additional findings. IMPRESSION: 1. No acute findings. Signer Name: Christopher Luevano MD Signed: 02/19/2020 10:31 AM Workstation Name: [id number]
[2020-02-19 10:45] LABS: Basophils # (Auto) 0.1 K/mm3 (0.0-0.1); Basophils % (Auto) 1.1 % (0.0-1.8); Eosinophils # (Auto) 0.2 K/mm3 (0.0-0.4); Eosinophils % (Auto) 3.9 % (0.0-4.3); Hematocrit 45.7 % (30.3-42.9); Hemoglobin 15.4 gm/dl (10.1-14.3); Lymphocytes # (Auto) 1.7 K/mm3 (1.2-5.4); Lymphocytes % (Auto) 30.4 % (13.4-35.0); Mean Corpuscular HGB Conc 34 % (30-34); Mean Corpuscular Volume 93 fl (79-97); Monocytes # (Auto) 0.4 K/mm3 (0.0-0.8); Monocytes % (Auto) 7.3 % (0.0-7.3); Platelet Count 127 K/mm3 (140-440); Red Blood Count 4.89 M/mm3 (3.65-5.03); Red Cell Distribution Width 15.4 % (13.2-15.2)
[2020-02-19 11:10] LABS: Blood Urea Nitrogen 15 mg/dL (7-17); Calcium 9.8 mg/dL (8.4-10.2); Hemolysis Index 87
[2020-02-19 11:13] LABS: BUN/Creatinine Ratio 21
--- NOTE | 2020-02-19 11:19 | Emergency Department Report ---
ED General Adult HPI - General Chief complaint: Chest Pain Stated complaint: CHEST PAIN/HEADACHE Time Seen by Provider: 02/19/20 11:08 Source: patient Mode of arrival: Ambulatory Limitations: No Limitations - History of Present Illness Initial comments: Patient is 54 years old female with history of pulmonary embolism. Patient presented to the ER from her OB doctor office after patient presented complaining of headache, chest pain for the last 3 weeks. Patient stated that her OB doctor found that her blood pressure is high and asked her to come to the ER for further evaluation. Patient described her chest pain is on and off, diffuse with radiation to her right fingers. Patient denied any fever or chills. No nausea or vomiting. Patient stated that she never been diagnosed with high blood pressure before. Patient denied any weakness, numbness or tingling sensation. No bowel or bladder incontinence. Severity scale (0 -10): 5 - Related Data Previous Rx's Medication Instructions Recorded Last Taken Type Apixaban [Eliquis] 5 mg PO BID 30 Days tablet 04/01/17 Unknown Rx Apixaban [Eliquis] 10 mg PO BID 7 Days tablet 04/01/17 Unknown Rx Cyclobenzaprine [Flexeril 10 MG 5 mg PO Q8H PRN tablet 04/01/17 Unknown Rx TAB] Pantoprazole [Protonix TAB] 40 mg PO QDAY tablet 04/01/17 Unknown Rx levoFLOXacin [Levaquin] 750 mg PO QDAY 7 Days tablet 04/01/17 Unknown Rx traMADoL [Ultram 50 MG tab] 50 mg PO Q6HR PRN #15 tablet 04/01/17 Unknown Rx methOCARBAMOL [Robaxin TAB] 500 mg PO Q6H #20 tablet 01/19/18 Unknown Rx predniSONE [Deltasone] 20 mg PO QDAY #7 tab 01/19/18 Unknown Rx Cyclobenzaprine HCl [Flexeril 5 MG 5 mg PO TID PRN #21 tab 07/22/18 Unknown Rx TAB] Naproxen [Naprosyn] 500 mg PO BID #14 tablet 07/22/18 Unknown Rx amLODIPine [Norvasc] 5 mg PO DAILY #30 tab 02/19/20 Unknown Rx hydroCHLOROthiazide [HCTZ] 25 mg PO QDAY #30 tablet 02/19/20 Unknown Rx Allergies Allergy/AdvReac Type Severity Reaction Status Date / Time No Known Allergies Allergy Verified 02/19/20 13:25 ED Review of Systems ROS: Stated complaint: CHEST PAIN/HEADACHE Other details as noted in HPI Comment: All other systems reviewed and negative Constitutional: denies: chills, fever Respiratory: denies: cough, shortness of breath, SOB with exertion, SOB at rest Cardiovascular: chest pain Gastrointestinal: denies: abdominal pain, nausea, vomiting, diarrhea, constipation, hematemesis Musculoskeletal: denies: back pain Neurological: headache. denies: weakness, numbness, paresthesias, confusion ED Past Medical Hx - Past Medical History Hx Congestive Heart Failure: No Hx Diabetes: No Hx Pulmonary Embolism: Yes Hx Asthma: No Hx COPD: No Additional medical history: hypokalemia - Surgical History Additional Surgical History: Right ankle surgery 1995 - Social History Smoking Status: Never Smoker Substance Use Type: None - Medications Home Medications: Home Medications Medication Instructions Recorded Confirmed Last Taken Type Apixaban [Eliquis] 5 mg PO BID 30 Days tablet 04/01/17 Unknown Rx Apixaban [Eliquis] 10 mg PO BID 7 Days tablet 04/01/17 Unknown Rx Cyclobenzaprine [Flexeril 10 MG 5 mg PO Q8H PRN tablet 04/01/17 Unknown Rx TAB] Pantoprazole [Protonix TAB] 40 mg PO QDAY tablet 04/01/17 Unknown Rx levoFLOXacin [Levaquin] 750 mg PO QDAY 7 Days tablet 04/01/17 Unknown Rx traMADoL [Ultram 50 MG tab] 50 mg PO Q6HR PRN #15 tablet 04/01/17 Unknown Rx methOCARBAMOL [Robaxin TAB] 500 mg PO Q6H #20 tablet 01/19/18 Unknown Rx predniSONE [Deltasone] 20 mg PO QDAY #7 tab 01/19/18 Unknown Rx Cyclobenzaprine HCl [Flexeril 5 MG 5 mg PO TID PRN #21 tab 07/22/18 Unknown Rx TAB] Naproxen [Naprosyn] 500 mg PO BID #14 tablet 07/22/18 Unknown Rx amLODIPine [Norvasc] 5 mg PO DAILY #30 tab 02/19/20 Unknown Rx hydroCHLOROthiazide [HCTZ] 25 mg PO QDAY #30 tablet 02/19/20 Unknown Rx ED Physical Exam - General Limitations: No Limitations General appearance: alert, in no apparent distress - Head Head exam: Present: atraumatic, normocephalic, normal inspection - ENT ENT exam: Present: normal exam, normal orophraynx, mucous membranes moist - Neck Neck exam: Present: normal inspection, full ROM. Absent: tenderness, meningismus - Respiratory Respiratory exam: Present: normal lung sounds bilaterally - Cardiovascular Cardiovascular Exam: Present: regular rate, normal rhythm, normal heart sounds - GI/Abdominal GI/Abdominal exam: Present: soft, normal bowel sounds. Absent: distended, tenderness, guarding, rebound, rigid, organomegaly, mass, bruit, pulsatile mass, hernia - Extremities Exam Extremities exam: Present: normal inspection, full ROM, normal capillary refill. Absent: pedal edema, calf tenderness - Back Exam Back exam: Present: normal inspection, full ROM. Absent: CVA tenderness (R), CVA tenderness (L) - Neurological Exam Neurological exam: Present: alert, oriented X3, CN II-XII intact - Skin Skin exam: Present: warm, intact, normal color ED Course Vital Signs 02/19/20 02/19/20 02/19/20 09:56 11:03 11:16 Temperature 98.7 F Pulse Rate 93 H 87 Respiratory 18 22 22 Rate Blood Pressure 193/116 176/80 Blood Pressure 193/116 [Left] Blood Pressure 196/110 [Right] O2 Sat by Pulse 99 98 Oximetry 02/19/20 02/19/20 02/19/20 11:25 11:30 11:46 Temperature Pulse Rate Respiratory Rate Blood Pressure 176/81 176/80 192/90 Blood Pressure [Left] Blood Pressure [Right] O2 Sat by Pulse 100 99 Oximetry 02/19/20 02/19/20 02/19/20 12:00 12:10 13:25 Temperature Pulse Rate 65 102 H Respiratory 18 18 Rate Blood Pressure 187/109 163/88 Blood Pressure [Left] Blood Pressure [Right] O2 Sat by Pulse 99 98 Oximetry ED Medical Decision Making - Lab Data Result diagrams: 02/19/20 10:27 02/19/20 10:27 - EKG Data -: EKG Interpreted by Ri EKG shows normal: sinus rhythm Rate: normal - EKG Data Interpretation: no acute changes - Radiology Data Radiology results: report reviewed - Medical Decision Making Patient is 54 years old female with history of pulmonary embolism. Patient presented to the ER from her OB doctor office after patient presented c omplaining of headache, chest pain for the last 3 weeks. Patient stated that her OB doctor found that her blood pressure is high and asked her to come to the ER for further evaluation. Patient described her chest pain is on and off, diffuse with radiation to her right fingers. Patient denied any fever or chills. No nausea or vomiting. Patient stated that she never been diagnosed with high blood pressure before. Patient denied any weakness, numbness or tingling sensation. No bowel or bladder incontinence. Patient also stated that she is having dental pain for the last week. EKG is unremarkable. Labs reviewed and is unremarkable including negative troponin x2. Chest x-ray is negative for acute finding. Patient received clonidine 0.2 mg and patient stated that symptoms completely resolved. Patient is chest pain-free now. She also stated that her headache completely resolved. I believe patient symptom is most likely from her malignant hypertension, patient given her prescription for Norvasc 5 mg daily and hydrochlorothiazide 25 mg, patient also given amoxicillin for her dental abscess and advised to follow-up with her primary care physician for outpatient cardiac work-up. Patient also advised to return to the ER she develop any new symptoms. Critical care attestation.: If time is entered above; I have spent that time in minutes in the direct care of this critically ill patient, excluding procedure time. ED Disposition Clinical Impression: Chest pain, Malignant hypertension, Dental abscess Disposition: TO HOME OR SELFCARE Is pt being admited?: No Condition: Stable Instructions: Nonspecific Chest Pain, Adult, Hypertension, Adult, [id number], Chest Pain (ED), Hypertension (ED), Dental Abscess, [id number] Prescriptions: amLODIPine [Norvasc] 5 mg PO DAILY #30 tab hydroCHLOROthiazide [HCTZ] 25 mg PO QDAY #30 tablet Referrals: PRIMARY CARE,MD [Primary Care Provider] - 3-5 Days
[2020-02-19] MEDS: cloNIDine 0.1 MG TAB PO ONE ×2 (11:25→13:25)
[2020-02-19] MEDS ORDERED: cloNIDine 0.1 MG TAB ONE (13:22)
[2020-02-19] MEDS ORDERED: cloNIDine 0.1 MG TAB PO ONE (13:39)
[2020-02-19 15:07] VITALS: BP 127/91
== END 2020-02-19 15:06 | disposition home or self-care (01) ==
LOC: ED 09:46
DX: I10 Essential (primary) hypertension (principal); K04.7 Periapical abscess without sinus; R07.89 Other chest pain; Z86.711 Personal history of pulmonary embolism; Z79.01 Long term (current) use of anticoagulants; Z98.890 Other specified postprocedural states; Z79.899 Other long term (current) drug therapy
CPT/HCPCS: 36415; 71045; 80048; 84484; 85025; 93005